=== PATIENT | female | born 2000 | race Caucasian/White ===

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

== ENCOUNTER 2020-11-11 22:03 | Inpatient (IN) | payer BC ==
[~2020-11-11] VITALS: Ht 180.3 cm; Wt 59.1 kg
[~2020-11-11 22:03] MED LIST changes: +BACTDSTA PO; -SULF1TAB93 PO
[2020-11-11] MEDS ORDERED: XANA0.5T PO (22:15)
[2020-11-11 22:52] LABS: HEMATOCRIT 48.9 % (36.0-47.0); HEMOGLOBIN 16.1 g/dl (12.0-15.5); MEAN CORPUSCULAR HEMOGLOBIN 30.2 pg (27.0-33.0); MEAN CORPUSCULAR HGB CONC 32.9 g/dl (32.0-36.5); MEAN CORPUSCULAR VOLUME 91.7 fl (80.0-96.0); PLATELET COUNT, AUTOMATED 287 10^3/uL (150-450); RED BLOOD COUNT 5.33 10^6/uL (4.00-5.40); WHITE BLOOD COUNT 10.1 10^3/uL (4.0-10.0)
[2020-11-11 23:21] LABS: AMPHETAMINES LEVEL URINE NEGATIVE (NEGATIVE); BARBITURATES URINE NEGATIVE (NEGATIVE); BENZODIAZEPINES URINE POSITIVE (NEGATIVE); CANNABINOIDS URINE NEGATIVE (NEGATIVE); COCAINE METABOLITE URINE NEGATIVE (NEGATIVE); METHADONE URINE NEGATIVE (NEGATIVE); OPIATES URINE NEGATIVE (NEGATIVE); PHENCYCLIDINE URINE NEGATIVE (NEGATIVE)
[2020-11-11 23:22] LABS: HCG, SERUM QUALITATIVE NEGATIVE (NEGATIVE)
[2020-11-11 23:36] LABS: ACETAMINOPHEN LEVEL < 2.0 UG/ML (10.0-30.0); ALBUMIN 4.8 GM/DL (3.2-5.2); ALT/SGPT 18 U/L (12-78); BILIRUBIN,DIRECT < 0.1 MG/DL (0.0-0.2); BILIRUBIN,TOTAL 0.5 MG/DL (0.2-1.0); BLOOD UREA NITROGEN 11 MG/DL (7-18); CALCIUM LEVEL 9.3 MG/DL (8.5-10.1); CARBON DIOXIDE LEVEL 26 MEQ/L (21-32); CHLORIDE LEVEL 108 MEQ/L (98-107); CREATININE FOR GFR 0.79 MG/DL (0.55-1.30); ETHYL ALCOHOL (ETHANOL) < 0.003 % (0.000-0.010); GLUCOSE, FASTING 91 MG/DL (70-100); POTASSIUM SERUM 4.6 MEQ/L (3.5-5.1); SALICYLATE LEVEL < 1.7 MG/DL (5.0-30.0); SODIUM LEVEL 142 MEQ/L (136-145); TOTAL PROTEIN 8.1 GM/DL (6.4-8.2)
--- NOTE | 2020-11-12 07:57 | ECGEPIP ---
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
[2020-11-12] MEDS ORDERED: ACETAMINOPHEN TAB 650MG DOSE (2X325MG) PO ONE (10:05)
[2020-11-12 11:11] LABS: RSV AMPLIFICATION NEGATIVE (NEGATIVE)
[2020-11-12] MEDS ORDERED: ACETAMINOPHEN TAB 650MG DOSE (2X325MG) PO PRN (11:50)
[2020-11-12] MEDS ORDERED: traZODone 50 MG TAB PO PRN (11:50)
[2020-11-12] MEDS ORDERED: MOM 30ML SUSPENSION UDC PO PRN (11:50)
[2020-11-12] MEDS ORDERED: MAALOX 30 ML SUSP *UDC PO PRN (11:50)
[2020-11-12 14:32] VITALS: BP 117/72
[2020-11-12] MEDS: LORazepam 0.5 MG TAB PO PRN (21:18)
[2020-11-13 06:04] VITALS: BP 113/63
[2020-11-13] MEDS: LORazepam 0.5 MG TAB PO PRN (08:08)
--- NOTE | 2020-11-13 12:57 | MHHPEPDOC ---
General Date Of Admission: Nov 12, 2020 Legal Status: 9.39 Chief Complaint ". History of Present Illness HISTORY OF THE PRESENT ILLNESS: Patient is a 20 -year-old Single, Employed, Domiciled , female, who reports depressive symptoms for the past two weeks. She states that she has " alot of stress and admits that one day last week she stated to her boyfriend. "If I didn't wake up in the tomorrow, I would be ok with it." States that she lived in in [place] for 1 year and was seeing a psychiatrist but return to [place] with a month supply of medications. She has been unable to be established with an outpatient mental health provider. She states that she has been seen by a therapist but she was not prescribed medications and then she and this therapist did not work out, she sought a second therapist that she did not like and felt that the therapist was not giving her any "good advice". She states that she has a primary care provider appointment in the future. She has not been able to get a new prescription for her medications -Abilify, Xanax, propranolol, Seroquel, Lamictal, Zoloft which she has been taking since last December. She recently moved back to the area from [place] in July/August and has not had medications in 1 month. She states that since not taking her medications she is stopped going to the gym, stopped working out, stop walking, and stopped doing things that helped her to cope. She reports a long history of anxiety since she was young, including social anxiety. During the interview, she denied continued suicidal ideation. She denied continued planning or intent to self-harm. In discussing medications, reinforced with patient that home medications with the exception of Xanax may be resumed, and she would need to be observed over the weekend. She declined and states that she does not want to stay the weekend and became tearful requesting to be discharged without medications. PER ED REPORT Pt arrives to ED accompanied by mother, pt admits to increased depression recently with active SI. PT is tearful cooperative with good eye contact, admits to telling her BF and mother earlier today that she is feeling suicidal, mom brought pt to ED. Pt reports hx of depression but no prior psych admissions or attempts at self harm, has been in outpt tx briefly in past no current tx. Pt vague about stressors, states "everything in my life", becomes tearful frequently during interview, admits to SI with plan to take overdose. Pt denies HI, denies AH/VH/substance abuse, reports poor sleep and appetite x 2 weeks, also low energy and poor concentration, states "I can't get motivated, I don't want to get out of bed anymore". PT c/o feeling helpless/hopeless, continues to voice SI with plan at this time. Psychiatric Review of Systems Depression (2 or more weeks): depressed mood, insomnia/hypersomnia (off and on - ), suicidal thoughts Mary Ann (4 or more days of): other (fast speech, conversant, history of manic behaviors - rearranges house, wants to be occupied and has had periods of no sleep, racing thoughts, history of rapid goal oriented activities) Psychosis: denies PTSD: denies Anxiety: denies Anxiety/ 6 months or more of: restlessness, keyed up Past Psychiatric History Previous Psychiatric Diagnosis: Bipolar, depression Previous Psychiatric Admissions: This is first Suicide Attempts: Denies Psychiatric Follow-up: [facility] Psychiatric medications: Has not taken in a monthAbilify, Xanax, propranolol, Seroquel, Lamictal, Zoloft. Past Medical History Medical Problems No contruboty Head Injury: No Seizures: No Hospitalizations: Yes Surgeries: Yes (cardiac ablation 2018, right foot surgery) Family Medical/Psychiatric HX Psychiatric Disorders: Yes (mat grandmother - anxiety) Addiction: No Suicide Attemps/Completions: No Addiction History denies Social History Childhood: Born in [place], 3 brothers, Abuse/Trauma:. 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 Social Support: boyfriend, grandmother, friend Zeenat Legal: None Marital: Single Mental Status Examination General Appearance: well groomed, appears stated age, hospital scubs/clothing Build: average Demeanor: average Eye Contact: average Activity: average Behavior: cooperative Speech: clear Mood: depressed, anxious Affect: full Thought Process: logical/linear Thought Content (Other): none reported Thought Content (Aggressive): none reported Perception (Hallucinations): none reported Perception (Other): none reported Cognition (Impairment of): none reported Cognition(Intelligence Est.): average Oriented: Awake, Alert, Oriented times three Insight: good Judgment: Good Psychosis: Denies Diagnoses Bipolar 1 disorder, current episode depressed Unspecified anxiety disorder A-FIB/CHADSVASC A-FIB History Current/History of A-Fib/PAF?: No Current PO Anticoag Therapy: No Assessment Patient is a 20-year-old single, unemployed, domiciled, female who reports that she has been without her medications for approximately a month and having increased depression anxiety and suicidal ideations. She stated that last week she had made the statement to her boyfriend "if I do not wake up tomorrow I would be okay with that." Patient recently returned to the area from [place] where she was going to school. She was seen by a psychiatrist who gave her 1 months worth of medications but she has been unable to establish herself with an outpatient mental health provider. Patient denies in today's interview that she is continuing to have any suicidal ideation. She reports decreased depression and anxiety in today's interview. She is requesting to be discharged. Patient would like her medications resumed. Encourage patient to stay the weekend so that she can be evaluated and observed for medication administration. Patient declined and stated that she wanted to be discharged. Reinforced with patient that she could be established on all of her home medications with the exception of the Xanax if she were to stay the weekend and be observed for an hour potential side effects. Patient again declined. She stated that she was not severely depressed or anxious. She denied continued suicidal ideations. And she also reported no planning or intent. She has no history of past suicide attempts or gestures. Patient does not pose a danger to herself and others, she was sues to return home where she resides with her parents. Initial Treatment Plan 1. Patient was admitted on a [9.39] status. 2. Complete history was obtained. 3. With patients permission, family will be contacted and database will be expanded. 4. Patients medication regimen will be reviewed and changed accordingly. 5. Patient will be provided with protected environment. 6. Patient will be treated with individual, group, and milieu therapies. 7. Patient will receive supportive psych-education. 8. Discharge planning will commence immediately. 9. Outpatient follow-up treatment will be strongly recommended. 10. The initial treatment plan will focus initially on: * Depression. * Risk for suicide. ESTIMATED LENGTH OF STAY: 13 DAYS. TIME SPENT COUNSELING AND COORDINATING INITIAL CARE: 60] minutes. Tobacco Cessation Screen If Patient is a Smoker She reports she is not a smoker N/A-No Antipsychotics Vital Signs Vital Signs Date Time Temp Pulse Resp B/P (MAP) Pulse Ox O2 Delivery O2 Flow Rate FiO2 11/13/20 06:04 97.3 80 16 113/63 (80) 99 Room Air Laboratory Data 24H Labs Laboratory Tests 2 11/12/20 10:21: Coronavirus (COVID-19)(PCR) NEGATIVE, Influenza Type A (RT-PCR) NEGATIVE, Influenza Type B (RT-PCR) NEGATIVE, Respiratory Syncytial Virus (PCR) NEGATIVE Medications Miscellaneous Medications Levonorgestrel (Mirena) 1 Each Iud, 20 MCG IU, (Reported) Allergies Coded Allergies: No Known Allergies (Unverified , 08/10/18) EILEEN BOBO NP Nov 13, 2020 09:54
--- NOTE | 2020-11-13 13:05 | MHDSPDOC ---
[facility] Discharge Summary Discharge Summary DATE OF ADMISSION: Nov 12, 2020 at 11:50 DATE OF DISCHARGE: November 13, 2020 at 1258 DISCHARGE DIAGNOSES: Bipolar 1 disorder, current episode depressed Unspecified anxiety disorder REASON FOR ADMISSION: : Patient is a 20 -year-old Single, Employed, Domiciled , female, who reports depressive symptoms for the past two weeks. She states that she has " al ot of stress and admits that one day last week she stated to her boyfriend. "If I didn't wake up in the tomorrow, I would be ok with it." States that she lived in in [place] for 1 year and was seeing a psychiatrist but return to [place] with a month supply of medications. She has been unable to be established with an outpatient mental health provider. She states that she has been seen by a therapist but she was not prescribed medications and then she and this therapist did not work out, she sought a second therapist that she did not like and felt that the therapist was not giving her any "good advice". She states that she has a primary care provider appointment in the future. She has not been able to get a new prescription for her medications - Abilify, Xanax, propranolol, Seroquel, Lamictal, Zoloft which she has been taking since last December. She recently moved back to the area from [place] in July/August and has not had medications in 1 month. She states that since not taking her medications she is stopped going to the gym, stopped working out, stop walking, and stopped doing things that helped her to cope. She reports a long history of anxiety since she was young, including social anxiety. PER ED REPORT Pt arrives to ED accompanied by mother, pt admits to increased depression recently with active SI. PT is tearful cooperative with good eye contact, admits to telling her BF and mother earlier today that she is feeling suicidal, mom brought pt to ED. Pt reports hx of depression but no prior psych admissions or attempts at self harm, has been in outpt tx briefly in past no current tx. Pt vague about stressors, states "everything in my life", becomes tearful frequently during interview, admits to SI with plan to take overdose. Pt denies HI, denies AH/VH/substance abuse, reports poor sleep and appetite x 2 weeks, also low energy and poor concentration, states "I can't get motivated, I don't want to get out of bed anymore". PT c/o feeling helpless/hopeless, continues to voice SI with plan at this time. VITAL SIGNS: See below. CONSULTANTS INVOLVED: See Medical H + P by Hospitalist TREATMENT AND PROGRESS ON THE UNIT: Patient was admitted to the [facility] on a 9.39 legal status he was afforded the following treatment modalities: 1) Individual Therapy 2) Group Therapy 3) Medication Management 4) Milieu Therapy 5) Safe Environment HOSPITAL COURSE: Patient is a 20-year-old single, unemployed, domiciled, female who reports that she has been without her medications for approximately a month and having increased depression anxiety and suicidal ideations. She stated that last week she had made the statement to her boyfriend "if I do not wake up tomorrow I would be okay with that." Patient recently returned to the area from [place] where she was going to school. She was seen by a psychiatrist who gave her 1 months worth of medications but she has been unable to establish herself with an outpatient mental health provider. Patient denies in today's interview that she is continuing to have any suicidal ideation. She reports decreased depression and anxiety in today's interview. She is requesting to be discharged. Patient would like her medications resumed. Encourage patient to stay the weekend so that she can be evaluated and observed for medication administration. Patient declined and stated that she wanted to be discharged. Reinforced with patient that she could be established on all of her home medications with the exception of the Xanax if she were to stay the weekend and be observed for an hour potential side effects. Patient again declined. She stated that she was not severely depressed or anxious. She denied continued suicidal ideations. And she also reported no planning or intent. She has no history of past suicide attempts or gestures. Patient does not pose a danger to herself and others, she was sues to return home where she resides with her parents. DISCHARGE ASSESSMENT: In today's interview, patient is alert and oriented, pts dress is appropriate. Hygiene and grooming is well-kempt. Smiles on approach and is pleasant and engaged in the interview. Denies depression and anxiety. Denies suicidal and homicidal ideation, planning or intent. Denies and is not observed with elliot, psychotic symptoms of delusions, bizarre thinking, obsessions, paranoia, ruminations illogical thoughts, flight of ideas or having poor insight and judgement. Patient has normal mentation, declines further hospitalization on a voluntary status and meets criteria for discharge today. Patient encouraged to return to hospital if symptoms worsen or change and encouraged to call unit if he/she/they needs to speak to provider for questions regarding medications or care. MENTAL STATUS EXAMINATION ON DISCHARGE: Patient is a 20-year-old single, unemployed, domiciled, female who reports that she has been without her medications for approximately a month and having increased depression anxiety and suicidal ideations. General Appearance: well groomed, appears stated age, hospital scrubs/clothing Build: average Demeanor: average Eye Contact: average Activity: average Behavior: cooperative Speech: clear Mood: depressed, anxious Affect: full Thought Process: logical/linear Thought Content (Other): none reported Thought Content (Aggressive): none reported Perception (Hallucinations): none reported Perception (Other): none reported Cognition (Impairment of): none reported Cognition(Intelligence Est.): average Oriented: Awake, Alert, Oriented times three Insight: Good Judgment: Good Psychosis: Denies MEDICATIONS ON DISCHARGE: See Medication Reconciliation PLAN/FOLLOWUP ARRANGEMENTS: [facility] The amount of time spent in the coordination of care for this patient was approximately 25 minutes. ETOH/Disorder Med Rx ETOH/DRUG DISORDER RX: N/A Vital Signs/I&Os Vital Signs Date Time Temp Pulse Resp B/P (MAP) Pulse Ox O2 Delivery O2 Flow Rate FiO2 11/13/20 06:04 97.3 80 16 113/63 (80) 99 Room Air Medications Miscellaneous Medications Levonorgestrel (Mirena) 1 Each Iud, 20 MCG IU, (Reported) Allergies Coded Allergies: No Known Allergies (Unverified , 08/10/18) EILEEN BOBO NP Nov 13, 2020 13:05
== END 2020-11-13 13:12 | disposition home or self-care (01) | DRG 753 ==
LOC: M ED 22:03 → M ED INP 11-12 11:50 → M PSY 11-12 14:26
PROVIDERS: ADMIT Psychiatry & Neurology Psychiatry; ATTEND Psychiatry & Neurology Psychiatry
DX: F31.9 Bipolar disorder, unspecified (principal); F41.9 Anxiety disorder, unspecified; Z20.822 Contact with and (suspected) exposure to COVID-19; Z79.3 Long term (current) use of hormonal contraceptives; Z91.14 Patient's other noncompliance with medication regimen

== ENCOUNTER → 2021-04-13 | Outpatient (REF) | payer BC ==
[~2021-04-13] MED LIST changes: +CEFD300C PO; +KETO10TAB PO; +LAMO50TA; +LATU80TA2; +XANA0.5T PO; +ZOLO25TA
[2021-04-13 15:30] LABS: GC DNA AMPLIFICATION NEGATIVE (NEGATIVE)
== END ==
LOC: M SFHCWAGY 12:56
PROVIDERS: ATTEND Advanced Practice Midwife
DX: R10.2 Pelvic and perineal pain (principal); N73.9 Female pelvic inflammatory disease, unspecified

== ENCOUNTER → 2021-04-13 | Outpatient (CLI) | payer BC | LOC: M WHC 11:30 | PROVIDERS: ATTEND Advanced Practice Midwife | DX: R10.2 Pelvic and perineal pain (principal); Z53.9 Procedure and treatment not carried out, unspecified reason ==

== ENCOUNTER → 2021-04-22 | Outpatient (CLI) | payer OTHER ==
[~2021-04-22] MED LIST changes: -CEFD300C PO; -KETO10TAB PO; -LAMO50TA; -LATU80TA2; -ZOLO25TA
== END ==
LOC: M WHC 13:32
PROVIDERS: ATTEND Advanced Practice Midwife
DX: R10.2 Pelvic and perineal pain (principal)

== ENCOUNTER → 2021-05-13 | Outpatient (REF) | payer OTHER ==
[~2021-05-13] MED LIST changes: +CEFD300C PO; +KETO10TAB PO; +LAMO50TA; +LATU80TA2; +ZOLO25TA
== END ==
LOC: M SFHCWAGY 14:23
PROVIDERS: ATTEND Advanced Practice Midwife
DX: R30.0 Dysuria (principal)

== ENCOUNTER 2021-05-16 03:10 | Emergency (ER) | payer OTHER ==
[~2021-05-16] VITALS: Ht 180.3 cm; Wt 61.1 kg
[~2021-05-16 03:10] MED LIST changes: -CEFD300C PO; -KETO10TAB PO; -LAMO50TA; -LATU80TA2; -ZOLO25TA
[2021-05-16] MEDS ORDERED: ZOLO25TA (03:19)
[2021-05-16] MEDS ORDERED: LAMO50TA (03:19)
[2021-05-16] MEDS ORDERED: LATU80TA2 (03:19)
[2021-05-16] MEDS ORDERED: KETOROLAC 30 MG/ML 1ML VIAL IV ONE (04:50)
[2021-05-16 04:52] LABS: BASO % 0.3 % (0.0-1.0); EOS % 0.3 % (0.0-3.0); HEMATOCRIT 43.5 % (36.0-47.0); HEMOGLOBIN 14.8 g/dl (12.0-15.5); LYMPH # 1.4 10^3/uL (1.5-5.0); LYMPH % 11.8 % (24.0-44.0); MONO # 0.9 10^3/uL (0.0-0.8); NEUTROPHILS # 9.1 10^3/uL (1.5-8.5); NEUTROPHILS % 79.3 % (36.0-66.0); PLATELET COUNT, AUTOMATED 224 10^3/uL (150-450); RED BLOOD COUNT 4.78 10^6/uL (4.00-5.40); WHITE BLOOD COUNT 11.5 10^3/uL (4.0-10.0)
[2021-05-16 05:07] LABS: URINE PREG TEST NEGATIVE (NEGATIVE)
[2021-05-16 05:12] LABS: BLOOD UREA NITROGEN 15 MG/DL (7-18); CALCIUM LEVEL 8.7 MG/DL (8.5-10.1); CARBON DIOXIDE LEVEL 27 MEQ/L (21-32); CHLORIDE LEVEL 109 MEQ/L (98-107); CREATININE FOR GFR 0.67 MG/DL (0.55-1.30); GLOMERULAR FILTRATION RATE > 60.0 (>60); GLUCOSE, FASTING 92 MG/DL (70-100); MAGNESIUM LEVEL 2.1 MG/DL (1.8-2.4); POTASSIUM SERUM 4.1 MEQ/L (3.5-5.1); SODIUM LEVEL 143 MEQ/L (136-145)
[2021-05-16 06:30] VITALS: BP 111/69
[2021-05-16 07:14] LABS: GC DNA AMPLIFICATION NEGATIVE (NEGATIVE)
[2021-05-16] MEDS ORDERED: CEFDINIR 300 MG CAP (OMNICEF) PO ONE (08:05)
[2021-05-16] MEDS ORDERED: KETO10TAB PO (08:10)
[2021-05-16] MEDS ORDERED: CEFD300C PO (08:10)
== END 2021-05-16 08:40 | disposition home or self-care (01) ==
LOC: M ED 03:10
DX: N39.0 Urinary tract infection, site not specified (principal); F32.9 Major depressive disorder, single episode, unspecified; Z79.3 Long term (current) use of hormonal contraceptives
CPT/HCPCS: 74176; 80048; 81001; 83605; 83735; 84703; 85025; 87088; 87186; 87808; 87810; 87850; 96374; 99284; J1885

== ENCOUNTER → 2021-06-28 | Outpatient (CLI) | payer OTHER ==
[~2021-06-28] MED LIST changes: +CEFD300C PO; +KETO10TAB PO; +LAMO50TA; +LATU80TA2; +ZOLO25TA
== END ==
LOC: M RAD 17:19
PROVIDERS: ATTEND Nurse Practitioner Family
DX: M79.644 Pain in right finger(s) (principal)

== ENCOUNTER → 2022-04-16 | Outpatient (REF) | payer OTHER, MEDICAID ==
[~2022-04-16] MED LIST changes: +ETON68IM SC; -NEXP1IMP SC
== END ==
LOC: M LAB REF 11:00
PROVIDERS: ATTEND Physician Assistant
DX: B34.9 Viral infection, unspecified (principal)

== ENCOUNTER → 2022-08-29 | Outpatient (REF) | LOC: M LAB 13:08 | PROVIDERS: ATTEND Nurse Practitioner Adult Health | DX: Z02.1 Encounter for pre-employment examination (principal) ==

== ENCOUNTER 2022-09-14 16:59 | Emergency (ER) | payer OTHER ==
[~2022-09-14] VITALS: Ht 180.3 cm; Wt 78.7 kg
[~2022-09-14 16:59] MED LIST changes: -BUSP5TAB; -DEPO150I12 IM; -GASTROGRAFIN SOLUTION 30ML As Ordered ONE; -ISOVUE-370 76% 100ML VIAL As Ordered ONE; -LAMI50TA; -OMEP40CA5; -RAME8TAB2; -VRAY1.5C
[2022-09-14 17:00] VITALS: BP 130/84
[2022-09-14] MEDS ORDERED: LAMI50TA (17:07)
[2022-09-14] MEDS ORDERED: BUSP5TAB (17:07)
[2022-09-14] MEDS ORDERED: OMEP40CA5 (17:07)
[2022-09-14] MEDS ORDERED: VRAY1.5C (17:07)
[2022-09-14] MEDS ORDERED: RAME8TAB2 (17:07)
[2022-09-14] MEDS ORDERED: DEPO150I12 IM (17:07)
[2022-09-14 18:05] LABS: BASO % 0.4 % (0.0-1.0); EOS % 0.1 % (0.0-3.0); HEMATOCRIT 43.9 % (36.0-47.0); HEMOGLOBIN 14.6 g/dl (12.0-15.5); LYMPH % 8.5 % (24.0-44.0); MEAN CORPUSCULAR HEMOGLOBIN 29.8 pg (27.0-33.0); MEAN CORPUSCULAR HGB CONC 33.3 g/dl (32.0-36.5); MEAN CORPUSCULAR VOLUME 89.6 fl (80.0-96.0); MONO # 0.6 10^3/uL (0.0-0.8); MONO % 5.5 % (2.0-8.0); NEUTROPHILS # 9.7 10^3/uL (1.5-8.5); NEUTROPHILS % 85.2 % (36.0-66.0); PLATELET COUNT, AUTOMATED 264 10^3/uL (150-450); WHITE BLOOD COUNT 11.3 10^3/uL (4.0-10.0)
[2022-09-14 18:28] LABS: HCG, SERUM QUALITATIVE NEGATIVE (NEGATIVE); LIPASE 25 U/L (12-53)
[2022-09-14 18:30] LABS: ALBUMIN 4.1 G/DL (3.2-5.2); ALKALINE PHOSPHATASE 77 U/L (46-116); ALT/SGPT 22 U/L (7.0-40); AST/SGOT 14 U/L (<34); BILIRUBIN,DIRECT 0.3 MG/DL (<0.4); BILIRUBIN,TOTAL 0.7 MG/DL (0.3-1.2); BLOOD UREA NITROGEN 9 MG/DL (9-23); CALCIUM LEVEL 9.3 MG/DL (8.5-10.1); CARBON DIOXIDE LEVEL 24 MMOL/L (20-31); CHLORIDE LEVEL 103 MMOL/L (98-107); CREATININE FOR GFR 0.66 MG/DL (0.55-1.30); GLOMERULAR FILTRATION RATE > 60.0 (>60); GLUCOSE, FASTING 94 MG/DL (60-100); POTASSIUM SERUM 3.8 MMOL/L (3.5-5.1); SODIUM LEVEL 139 MMOL/L (136-145); TOTAL PROTEIN 7.2 G/DL (5.7-8.2)
== END 2022-09-14 17:54 | disposition left against medical advice (07) ==
LOC: M ED 16:59
DX: Z53.21 Procedure and treatment not carried out due to patient leaving prior to being seen by health care provider (principal)

== ENCOUNTER → 2022-09-14 | Outpatient (CLI) | payer OTHER ==
[~2022-09-14] MED LIST changes: +BUSP5TAB; +DEPO150I12 IM; +GASTROGRAFIN SOLUTION 30ML As Ordered ONE; +ISOVUE-370 76% 100ML VIAL As Ordered ONE; +LAMI50TA; +OMEP40CA5; +RAME8TAB2; +VRAY1.5C
== END ==
LOC: M RAD 12:20
PROVIDERS: ATTEND Registered Nurse
DX: R19.7 Diarrhea, unspecified (principal); R10.9 Unspecified abdominal pain; R11.2 Nausea with vomiting, unspecified; R93.3 Abnormal findings on diagnostic imaging of other parts of digestive tract
CPT/HCPCS: 74177; 87507; Q9963; Q9967

== ENCOUNTER → 2022-09-27 | Outpatient (REF) | payer OTHER ==
[~2022-09-27] MED LIST changes: +BUSP5TAB; +DEPO150I12 IM; +LAMI50TA; +OMEP40CA5; +RAME8TAB2; +VRAY1.5C
== END ==
LOC: M SFHCWAGY 08:32
PROVIDERS: ATTEND Advanced Practice Midwife
DX: Z12.4 Encounter for screening for malignant neoplasm of cervix (principal)

== ENCOUNTER → 2022-10-14 | Outpatient (CLI) | payer OTHER ==
[2022-10-17 21:08] LABS: TISSUE TRANSGLUTAMINASE IgA <2 U/mL (0-3); TISSUE TRANSGLUTAMINASE IgG <2 U/mL (0-5)
== END ==
LOC: M LAB 13:33
PROVIDERS: ATTEND Internal Medicine
DX: R19.7 Diarrhea, unspecified (principal)

== ENCOUNTER → 2023-01-03 | Outpatient (CLI) | payer OTHER ==
[2023-01-03 09:22] LABS: BASO # 0.1 10^3/uL (0.0-0.2); BASO % 0.8 % (0.0-1.0); EOS # 0.1 10^3/uL (0.0-0.5); EOS % 1.3 % (0.0-3.0); HEMATOCRIT 44.1 % (36.0-47.0); HEMOGLOBIN 14.1 g/dl (12.0-15.5); LYMPH # 2.3 10^3/uL (1.5-5.0); LYMPH % 37.5 % (24.0-44.0); MEAN CORPUSCULAR HEMOGLOBIN 28.3 pg (27.0-33.0); MEAN CORPUSCULAR VOLUME 88.4 fl (80.0-96.0); MONO # 0.4 10^3/uL (0.0-0.8); MONO % 7.3 % (2.0-8.0); NEUTROPHILS # 3.2 10^3/uL (1.5-8.5); NEUTROPHILS % 52.8 % (36.0-66.0); PLATELET COUNT, AUTOMATED 303 10^3/uL (150-450); RED BLOOD COUNT 4.99 10^6/uL (4.00-5.40)
[2023-01-03 09:41] LABS: HEMOGLOBIN A1c 5.2 % (4.0-6.0)
[2023-01-03 09:46] LABS: ALBUMIN 3.9 G/DL (3.2-5.2); ALKALINE PHOSPHATASE 88 U/L (46-116); ALT/SGPT 28 U/L (7.0-40); AST/SGOT 12 U/L (<34); BILIRUBIN,TOTAL 0.5 MG/DL (0.3-1.2); BLOOD UREA NITROGEN 14 MG/DL (9-23); CALCIUM LEVEL 9.2 MG/DL (8.5-10.1); CARBON DIOXIDE LEVEL 27 MMOL/L (20-31); CHLORIDE LEVEL 107 MMOL/L (98-107); CHOLESTEROL LEVEL 185 MG/DL (<200); CHOLESTEROL RISK RATIO 4.09 (<5); CREATININE FOR GFR 0.71 MG/DL (0.55-1.30); FERRITIN 24.5 NG/ML (7.3-270.7); GLOMERULAR FILTRATION RATE > 60.0 (>60); GLUCOSE, FASTING 98 MG/DL (60-100); HDL CHOLESTEROL 45.2 MG/DL (>40); IRON (FE) 49 UG/DL (50-170); LDL CHOLESTEROL 120.6 MG/DL (<100); NON-HDL-C 139.8 MG/DL; PERCENT SATURATION 14.2 % (13.2-45.0); POTASSIUM SERUM 4.3 MMOL/L (3.5-5.1); SODIUM LEVEL 143 MMOL/L (136-145); THYROID STIMULATING HORMONE 1.535 uIU/ML (0.55-4.78); TOTAL 25(OH) VITAMIN D 19.1 NG/ML (20.0-100.0); TOTAL IRON BINDING CAPACITY 345 UG/DL (250-425); TOTAL PROTEIN 6.9 G/DL (5.7-8.2); TRIGLYCERIDES LEVEL 96 MG/DL (<150)
[2023-01-03 09:48] LABS: FREE T3 3.8 PG/ML (2.3-4.2)
[2023-01-03 09:50] LABS: THYROID PEROXIDASE ANTIBODY < 28.0 U/ML (<60.0)
== END ==
LOC: M LAB 08:41
PROVIDERS: ATTEND Nurse Practitioner Family
DX: R63.5 Abnormal weight gain (principal)

== ENCOUNTER → 2023-05-29 | Outpatient (CLI) | payer OTHER | LOC: M WHC 11:00 | PROVIDERS: ATTEND Advanced Practice Midwife | DX: R10.2 Pelvic and perineal pain (principal); Z53.9 Procedure and treatment not carried out, unspecified reason ==

== ENCOUNTER → 2023-06-14 | Outpatient (CLI) | payer BC | LOC: M WHC 07:05 | PROVIDERS: ATTEND Advanced Practice Midwife | DX: R10.2 Pelvic and perineal pain (principal) ==

== ENCOUNTER → 2023-08-10 | Outpatient (REF) | payer OTHER ==
[2023-08-10 21:14] LABS: APPEARANCE, URINE CLEAR (CLEAR); BACTERIA, URINE AUTO NEGATIVE (NEGATIVE); BILIRUBIN, URINE AUTO NEGATIVE (NEGATIVE); BLOOD, URINE BLOOD 1+ (NEGATIVE); COLOR, URINE YELLOW (YELLOW); GLUCOSE, URINE (UA) AUTO NEGATIVE (NEGATIVE); KETONE, URINE AUTO NEGATIVE (NEGATIVE); LEUKOCYTE ESTERASE, URINE AUTO NEGATIVE (NEGATIVE); MUCUS, URINE SMALL (NEGATIVE); NITRITE, URINE AUTO NEGATIVE (NEGATIVE); PROTEIN, URINE AUTO NEGATIVE (NEGATIVE); RBC, URINE AUTO 1 /HPF (0-3); SPECIFIC GRAVITY URINE AUTO 1.009 (1.002-1.035); SQUAMOUS EPITHELIAL CELL UR AU 1 /HPF (0-6); UROBILINOGEN, URINE AUTO 0.2 mg/dL (0.0-2.0); WBC, URINE AUTO 0 /HPF (0-3)
== END ==
LOC: M LAB REF 20:56
PROVIDERS: ATTEND Physician Assistant
DX: N39.0 Urinary tract infection, site not specified (principal)

== ENCOUNTER → 2023-08-10 | Outpatient (CLI) | payer BC | LOC: M RAD 18:41 | PROVIDERS: ATTEND Physician Assistant | DX: R10.2 Pelvic and perineal pain (principal); M54.50 Low back pain, unspecified ==

== ENCOUNTER → 2023-08-29 | Outpatient (CLI) | payer BC ==
[2023-08-29 08:36] LABS: BASO % 0.7 % (0.0-1.0); EOS # 0.1 10^3/uL (0.0-0.5); EOS % 1.6 % (0.0-3.0); LYMPH # 1.5 10^3/uL (1.5-5.0); LYMPH % 35.8 % (24.0-44.0); MEAN CORPUSCULAR HGB CONC 33.3 g/dl (32.0-36.5); MEAN CORPUSCULAR VOLUME 89.9 fl (80.0-96.0); MONO # 0.4 10^3/uL (0.0-0.8); MONO % 8.6 % (2.0-8.0); NEUTROPHILS # 2.3 10^3/uL (1.5-8.5); NEUTROPHILS % 53.3 % (36.0-66.0); PLATELET COUNT, AUTOMATED 248 10^3/uL (150-450); RED BLOOD COUNT 4.67 10^6/uL (4.00-5.40); WHITE BLOOD COUNT 4.3 10^3/uL (4.0-10.0)
[2023-08-29 09:04] LABS: ALBUMIN 3.9 G/DL (3.2-5.2); ALKALINE PHOSPHATASE 74 U/L (46-116); ALT/SGPT 16 U/L (7.0-40); AST/SGOT < 8 U/L (<34); BILIRUBIN,TOTAL 0.4 MG/DL (0.3-1.2); BLOOD UREA NITROGEN 14 MG/DL (9-23); CALCIUM LEVEL 9.1 MG/DL (8.5-10.1); CARBON DIOXIDE LEVEL 27 MMOL/L (20-31); CHLORIDE LEVEL 106 MMOL/L (98-107); CREATININE FOR GFR 0.75 MG/DL (0.55-1.30); GLOMERULAR FILTRATION RATE > 60.0 (>60); GLUCOSE, FASTING 89 MG/DL (60-100); POTASSIUM SERUM 4.1 MMOL/L (3.5-5.1); SODIUM LEVEL 142 MMOL/L (136-145); TOTAL PROTEIN 6.6 G/DL (5.7-8.2)
== END ==
LOC: M LAB 08:00
PROVIDERS: ATTEND Nurse Practitioner Family
DX: Z09 Encounter for follow-up examination after completed treatment for conditions other than malignant neoplasm (principal)

== ENCOUNTER → 2024-04-23 | Outpatient (REF) | payer BC, MEDICAID, OTHER | LOC: M LAB REF 17:23 | PROVIDERS: ATTEND Physician Assistant Medical | DX: B34.9 Viral infection, unspecified (principal) ==

== ENCOUNTER → 2024-05-01 | Outpatient (CLI) | payer OTHER, BC ==
[2024-05-01 15:14] LABS: FOLLICLE STIMULATING HORMONE 3.3 mIU/ML; LUTEINIZING HORMONE 3.9 mIU/ML; PROLACTIN 7.52 NG/ML
[2024-05-01 15:15] LABS: ESTRADIOL 114.7 PG/ML
== END ==
LOC: M PLALAB 09:53
PROVIDERS: ATTEND Nurse Practitioner Family
DX: Z31.69 Encounter for other general counseling and advice on procreation (principal)

== ENCOUNTER → 2024-08-05 | Outpatient (CLI) | payer OTHER | LOC: M WHC 06:59 | PROVIDERS: ATTEND Obstetrics & Gynecology | DX: N97.9 Female infertility, unspecified (principal) ==

== ENCOUNTER → 2024-08-22 | Outpatient (CLI) | payer OTHER ==
[~2024-08-22] MED LIST changes: +ISOVUE-370 76% 100ML VIAL As Ordered ONE
== END ==
LOC: M RADPRO 12:06
PROVIDERS: ATTEND Obstetrics & Gynecology
DX: N97.9 Female infertility, unspecified (principal)
CPT/HCPCS: 58340; 74740; Q9967

== ENCOUNTER → 2024-11-04 | Outpatient (REF) | payer OTHER ==
[~2024-11-04] MED LIST changes: -ISOVUE-370 76% 100ML VIAL As Ordered ONE
== END ==
LOC: M PLALAB 10:45
PROVIDERS: ATTEND Specialist
DX: Z53.9 Procedure and treatment not carried out, unspecified reason (principal)

== ENCOUNTER → 2024-11-19 | Outpatient (CLI) | payer OTHER ==
[2024-11-19 17:05] LABS: PLATELET COUNT, AUTOMATED 263 10^3/uL (150-450)
[2024-11-19 17:57] LABS: HIV 1&2 SCREEN NEGATIVE (NEGATIVE)
[2024-11-19 18:06] LABS: HEPATITIS C VIRUS ABY INDEX < 0.02 INDEX (<0.8)
[2024-11-19 18:14] LABS: Trichomonas vaginalis (AMP) NOT DETECTED (NEGATIVE)
[2024-11-19 18:38] LABS: GC DNA AMPLIFICATION NEGATIVE (NEGATIVE)
== END ==
LOC: M PLALAB 15:49
PROVIDERS: ATTEND Specialist
DX: Z34.02 Encounter for supervision of normal first pregnancy, second trimester (principal)

== ENCOUNTER → 2025-01-05 | Outpatient (REF) | payer OTHER, MEDICAID ==
[2025-01-05 13:12] LABS: APPEARANCE, URINE CLEAR (CLEAR); BACTERIA, URINE AUTO 3+ (NEGATIVE); BILIRUBIN, URINE AUTO NEGATIVE (NEGATIVE); BLOOD, URINE BLOOD 1+ (NEGATIVE); GLUCOSE, URINE (UA) AUTO NEGATIVE (NEGATIVE); KETONE, URINE AUTO NEGATIVE (NEGATIVE); LEUKOCYTE ESTERASE, URINE AUTO NEGATIVE (NEGATIVE); NITRITE, URINE AUTO NEGATIVE (NEGATIVE); PROTEIN, URINE AUTO NEGATIVE (NEGATIVE); RBC, URINE AUTO 0 /HPF (0-3); SPECIFIC GRAVITY URINE AUTO 1.003 (1.002-1.035); SQUAMOUS EPITHELIAL CELL UR AU 1 /HPF (0-6); UROBILINOGEN, URINE AUTO 0.2 mg/dL (0.0-2.0); WBC, URINE AUTO 3 /HPF (0-3)
== END ==
LOC: M LAB REF 09:50
PROVIDERS: ATTEND Physician Assistant
DX: N39.0 Urinary tract infection, site not specified (principal)

== ENCOUNTER 2025-01-27 02:53 | Emergency (ER) | payer OTHER ==
[~2025-01-27] VITALS: Ht 177.8 cm; Wt 77.7 kg
[2025-01-27 02:55] VITALS: BP 113/73; TEMP 97.6; O2SAT 98
[2025-01-27] MEDS ORDERED: PROM50TA4 PO (04:04)
[2025-01-27] MEDS ORDERED: ACET-907 PO (04:07)
[2025-01-27] MEDS ORDERED: PRENTAB9 PO (04:07)
[2025-01-27] MEDS ORDERED: PROM25TA12 PO (04:25)
== END 2025-01-27 03:09 | disposition admitted as inpatient to this hospital (09) ==
LOC: M ED 02:53
DX: Z53.21 Procedure and treatment not carried out due to patient leaving prior to being seen by health care provider (principal)

== ENCOUNTER 2025-01-27 03:14 | Outpatient (CLI) | payer OTHER ==
[~2025-01-27] VITALS: Ht 177.8 cm; Wt 77.9 kg
[2025-01-27 03:45] VITALS: BP 110/65
[2025-01-27] MEDS: LR 1,000 ML IV ONE (04:00)
[2025-01-27] MEDS ORDERED: PROM50TA4 PO (04:04)
[2025-01-27] MEDS ORDERED: ACET-907 PO (04:07)
[2025-01-27] MEDS ORDERED: PRENTAB9 PO (04:07)
[2025-01-27] MEDS ORDERED: HOME MED LIST COMPLETE! XX SCH (04:10)
[2025-01-27] MEDS ORDERED: PROM25TA12 PO (04:25)
[2025-01-27 06:57] VITALS: BP 79/46
[2025-01-27 07:59] VITALS: BP 109/66
== END 2025-01-27 08:40 | disposition home or self-care (01) ==
LOC: M LDO 03:14
PROVIDERS: ATTEND Obstetrics & Gynecology
DX: O21.8 Other vomiting complicating pregnancy (principal); O99.342 Other mental disorders complicating pregnancy, second trimester; F31.10 Bipolar disorder, current episode manic without psychotic features, unspecified; Z3A.20 20 weeks gestation of pregnancy
CPT/HCPCS: 59025; G0463; J2550

== ENCOUNTER → 2025-01-29 | Outpatient (CLI) | payer OTHER ==
[~2025-01-29] MED LIST changes: +ACET-907 PO; +PRENTAB9 PO; +PROM25TA12 PO; +PROM50TA4 PO
== END ==
LOC: M RAD 13:10
PROVIDERS: ATTEND Obstetrics & Gynecology
DX: Z34.82 Encounter for supervision of other normal pregnancy, second trimester (principal)

== ENCOUNTER 2025-02-14 13:33 | Outpatient (CLI) | payer MEDICAID, OTHER ==
[~2025-02-14] VITALS: Ht 177.8 cm; Wt 79.5 kg
[2025-02-14 13:43] VITALS: BP 109/68; O2SAT 97
[2025-02-14] MEDS ORDERED: PROG1CAP9 VG (13:56)
[2025-02-14] MEDS: BETAMETHASONE SOLUSPAN 6 MG/ML 5 ML VIAL IM ONE (13:59)
== END 2025-02-14 14:30 | disposition home or self-care (01) ==
LOC: M LDO 13:33
PROVIDERS: ATTEND Advanced Practice Midwife
DX: O26.872 Cervical shortening, second trimester (principal); Z3A.23 23 weeks gestation of pregnancy
CPT/HCPCS: 96372; G0463; J0702

== ENCOUNTER 2025-02-15 13:54 | Outpatient (CLI) | payer OTHER, MEDICAID ==
[~2025-02-15] VITALS: Ht 177.8 cm; Wt 79.9 kg
[~2025-02-15 13:54] MED LIST changes: +PROG1CAP9 VG
[2025-02-15 14:12] VITALS: BP 111/60
[2025-02-15] MEDS: BETAMETHASONE SOLUSPAN 6 MG/ML 5 ML VIAL IM SCH (14:19)
== END 2025-02-15 14:22 | disposition home or self-care (01) ==
LOC: M LDO 13:54
PROVIDERS: ATTEND Obstetrics & Gynecology
DX: O26.872 Cervical shortening, second trimester (principal); Z3A.23 23 weeks gestation of pregnancy
CPT/HCPCS: 59025; 96372; G0463; J0702

== ENCOUNTER → 2025-03-04 | Outpatient (CLI) | payer OTHER | LOC: M WHC 12:43 | PROVIDERS: ATTEND Obstetrics & Gynecology | DX: O26.879 Cervical shortening, unspecified trimester (principal) ==

== ENCOUNTER → 2025-03-05 | Outpatient (CLI) | payer OTHER ==
[2025-03-05 10:34] LABS: GLUCOSE CHALLENGE TEST 1 HOUR 127 MG/DL (LESS THAN 140)
[2025-03-05 10:41] LABS: PLATELET COUNT, AUTOMATED 206 10^3/uL (150-450)
[2025-03-05 11:09] LABS: HIV 1&2 SCREEN NEGATIVE (NEGATIVE)
[2025-03-05 11:17] LABS: HEPATITIS C VIRUS ABY INDEX < 0.02 INDEX (<0.8)
[2025-03-05 12:44] LABS: Trichomonas vaginalis (AMP) NOT DETECTED (NEGATIVE)
[2025-03-05 13:07] LABS: GC DNA AMPLIFICATION NEGATIVE (NEGATIVE)
== END ==
LOC: M PLALAB 07:21
PROVIDERS: ATTEND Obstetrics & Gynecology
DX: Z34.92 Encounter for supervision of normal pregnancy, unspecified, second trimester (principal)

== ENCOUNTER 2025-03-25 11:33 | Outpatient (CLI) | payer MEDICAID, OTHER ==
[~2025-03-25] VITALS: Ht 177.8 cm; Wt 82.8 kg
[~2025-03-25 11:33] MED LIST changes: -BACTDSTA PO; +SULF-8 PO
[2025-03-25] MEDS ORDERED: ACET500P3 PO (11:54)
== END 2025-03-25 12:35 | disposition home or self-care (01) ==
LOC: M LDO 11:33
PROVIDERS: ATTEND Specialist
DX: O26.873 Cervical shortening, third trimester (principal); Z3A.28 28 weeks gestation of pregnancy
CPT/HCPCS: 59025; G0463